=== PATIENT | female | born 1960 | race African-American/Black ===

== ENCOUNTER 2016-06-10 07:21 | Outpatient (CLI) | payer OTHER ==
[2016-06-10 09:24] LABS: #Basophils 0.1 thou/uL (0.0-0.2); #Eosinphils 0.2 thou/uL (0.0-0.7); #Lymphocytes 2.1 thou/uL (1.20-3.40); #Monocytes 0.7 thou/uL (0.11-0.59); #Neutrophils 3.1 thou/uL (1.40-6.50); %Basophils 0.9 % (0.0-1.0); %Eosinophils 3.7 % (0.0-10.0); %Lymphocytes 33.9 % (21.0-51.0); %Monocytes 10.7 % (0.0-10.0); Hematocrit 35.8 % (36.0-47.0); Mean Platelet Volume 7.1 fL (7.4-10.4); Red Blood Cell (RBC) Count 3.85 mill/uL (4.20-5.40); White Blood Cell (WBC) Count 6.1 thou/uL (4.8-10.8)
[2016-06-10 09:31] LABS: ALT (SGPT) 12 U/L (0-55); AST (SGOT) 12 U/L (5-34); Alkaline Phosphatase 80 U/L (40-150); Anion Gap 14 mmol/L (10-20); BUN (Urea Nitrogen) 38 mg/dL (9.8-20.1); Bilirubin, Total 0.2 mg/dL (0.2-1.2); Calc. Creatinine Clearance 0 mL/min (70-130); Calcium 9.1 mg/dL (7.8-10.44); Carbon Dioxide 19 mmol/L (22-29); Chloride 109 mmol/L (98-107); Estimated GFR-MDRD 85; Protein, Total 7.5 g/dL (6.0-8.3)
== END 2016-06-10 07:22 | disposition home or self-care (01) ==
LOC: NAV LABSP 07:21
PROVIDERS: ATTEND Internal Medicine
DX: E11.9 Type 2 diabetes mellitus without complications (principal); E78.5 Hyperlipidemia, unspecified
CPT/HCPCS: 36415; 80053; 85025

== ENCOUNTER 2016-06-16 23:00 | Outpatient (CLI) | payer MEDICARE, OTHER ==
[2016-06-16 23:29] LABS: Bilirubin Negative (Negative); Blood, Urine Small (Negative); Glucose, Urine (Dipstick) 250 mg/dL (Negative); Ketone, Urine Negative (Negative); Nitrite Positive (Negative); Protein, Urine (Dipstick) Negative (Neg-Trace); Urobilinogen 0.2 mg/dL (0.2-1.0)
[2016-06-16 23:35] LABS: Bacteria/HPF 4+ HPF (None Seen); Squamous Epithelial 0-3 HPF (0-3)
== END 2016-06-16 23:01 | disposition home or self-care (01) ==
LOC: NAV LAB 23:00
PROVIDERS: ATTEND Internal Medicine
DX: L89.303 Pressure ulcer of unspecified buttock, stage 3 (principal); N39.0 Urinary tract infection, site not specified; Z89.519 Acquired absence of unspecified leg below knee
CPT/HCPCS: 81003; 81015; 87070; 87077; 87086; 87205

== ENCOUNTER 2016-06-17 07:10 | Outpatient (CLI) | payer MEDICARE, OTHER ==
[2016-06-17 08:36] LABS: #Eosinphils 0.2 thou/uL (0.0-0.7); #Lymphocytes 2.3 thou/uL (1.20-3.40); #Monocytes 0.7 thou/uL (0.11-0.59); #Neutrophils 3.1 thou/uL (1.40-6.50); %Basophils 0.8 % (0.0-1.0); %Eosinophils 3.8 % (0.0-10.0); %Lymphocytes 36.2 % (21.0-51.0); %Monocytes 11.3 % (0.0-10.0); Hematocrit 35.2 % (36.0-47.0); Mean Platelet Volume 7.6 fL (7.4-10.4); Red Blood Cell (RBC) Count 3.82 mill/uL (4.20-5.40); White Blood Cell (WBC) Count 6.4 thou/uL (4.8-10.8)
[2016-06-17 09:06] LABS: ALT (SGPT) 14 U/L (0-55); AST (SGOT) 11 U/L (5-34); Alkaline Phosphatase 86 U/L (40-150); Anion Gap 12 mmol/L (10-20); BUN (Urea Nitrogen) 37 mg/dL (9.8-20.1); Bilirubin, Total 0.4 mg/dL (0.2-1.2); Calc. Creatinine Clearance 0 mL/min (70-130); Calcium 9.4 mg/dL (7.8-10.44); Chloride 109 mmol/L (98-107); Estimated GFR-MDRD 81; Globulin 4.1 g/dL (2.4-3.5); Protein, Total 7.6 g/dL (6.0-8.3)
[2016-06-17 09:50] LABS: Carbon Dioxide 20 mmol/L (22-29)
== END 2016-06-17 07:11 | disposition home or self-care (01) ==
LOC: NAV LABSP 07:10
PROVIDERS: ATTEND Internal Medicine
DX: N39.0 Urinary tract infection, site not specified (principal); L89.303 Pressure ulcer of unspecified buttock, stage 3; Z89.519 Acquired absence of unspecified leg below knee
CPT/HCPCS: 80053; 85025; 85652; 86140

== ENCOUNTER 2016-06-24 09:06 | Outpatient (CLI) | payer MEDICARE, OTHER | END 2016-06-24 09:07 | disposition home or self-care (01) | LOC: NAV LABSP 09:06 | PROVIDERS: ATTEND Internal Medicine | DX: E11.65 Type 2 diabetes mellitus with hyperglycemia (principal) | CPT/HCPCS: 36415; 82565 ==

== ENCOUNTER 2016-07-15 22:36 | Outpatient (CLI) | payer MEDICARE ==
[2016-07-15 22:51] LABS: Bilirubin Negative (Negative); Blood, Urine Moderate (Negative); Glucose, Urine (Dipstick) Negative (Negative); Ketone, Urine Negative (Negative); Nitrite Negative (Negative); Protein, Urine (Dipstick) Negative (Neg-Trace); Urobilinogen 0.2 mg/dL (0.2-1.0)
[2016-07-15 22:56] LABS: Bacteria/HPF 1+ HPF (None Seen)
== END 2016-07-15 22:37 | disposition home or self-care (01) ==
LOC: NAV LAB 22:36
PROVIDERS: ATTEND Internal Medicine
DX: N39.0 Urinary tract infection, site not specified (principal); N31.9 Neuromuscular dysfunction of bladder, unspecified
CPT/HCPCS: 81003; 81015; 87077; 87086

== ENCOUNTER 2016-07-18 07:40 | Outpatient (CLI) | payer MEDICARE ==
[2016-07-18 08:10] LABS: #Eosinphils 0.3 thou/uL (0.0-0.7); #Lymphocytes 2.3 thou/uL (1.20-3.40); #Monocytes 0.8 thou/uL (0.11-0.59); #Neutrophils 3.3 thou/uL (1.40-6.50); %Basophils 0.7 % (0.0-1.0); %Eosinophils 4.3 % (0.0-10.0); %Lymphocytes 34.5 % (21.0-51.0); %Monocytes 11.8 % (0.0-10.0); Hematocrit 35.2 % (36.0-47.0); Mean Platelet Volume 7.9 fL (7.4-10.4); Red Blood Cell (RBC) Count 3.95 mill/uL (4.20-5.40); White Blood Cell (WBC) Count 6.8 thou/uL (4.8-10.8)
[2016-07-18 08:17] LABS: ALT (SGPT) 13 U/L (0-55); AST (SGOT) 10 U/L (5-34); Alkaline Phosphatase 100 U/L (40-150); Anion Gap 13 mmol/L (10-20); BUN (Urea Nitrogen) 46 mg/dL (9.8-20.1); Bilirubin, Total 0.3 mg/dL (0.2-1.2); Calc. Creatinine Clearance 0 mL/min (70-130); Calcium 9.7 mg/dL (7.8-10.44); Carbon Dioxide 18 mmol/L (22-29); Chloride 113 mmol/L (98-107); Estimated GFR-MDRD 78; Protein, Total 7.6 g/dL (6.0-8.3)
== END 2016-07-18 07:41 | disposition home or self-care (01) ==
LOC: NAV LABSP 07:40
PROVIDERS: ATTEND Internal Medicine
DX: E78.5 Hyperlipidemia, unspecified (principal); E11.9 Type 2 diabetes mellitus without complications
CPT/HCPCS: 36415; 80053; 85025

== ENCOUNTER 2016-08-03 07:44 | Outpatient (CLI) | payer MEDICARE ==
[2016-08-03 10:09] LABS: ALT (SGPT) 20 U/L (0-55); AST (SGOT) 20 U/L (5-34); Alkaline Phosphatase 108 U/L (40-150); Anion Gap 16 mmol/L (10-20); BUN (Urea Nitrogen) 33 mg/dL (9.8-20.1); Bilirubin, Total 0.2 mg/dL (0.2-1.2); Calc. Creatinine Clearance 0 mL/min (70-130); Calcium 9.2 mg/dL (7.8-10.44); Carbon Dioxide 24 mmol/L (22-29); Chloride 103 mmol/L (98-107); Estimated GFR-MDRD 81; Globulin 3.8 g/dL (2.4-3.5); Protein, Total 6.8 g/dL (6.0-8.3)
[2016-08-03 10:43] LABS: Hemoglobin A1c 10.1 % (4.0-6.0)
[2016-08-03 11:48] LABS: Anisocytosis SLIGHT = 6-15 cells (100X) (0-5/hpf); Hematocrit 29.1 % (36.0-47.0); Hypochromia SLIGHT = 6-15 cells (100X) (0-5/hpf); Mean Platelet Volume 7.4 fL (7.4-10.4); Neutrophil 58 % (42-75); White Blood Cell (WBC) Count 9.6 thou/uL (4.8-10.8)
== END 2016-08-03 07:45 | disposition home or self-care (01) ==
LOC: NAV LABSP 07:44
PROVIDERS: ATTEND Internal Medicine
DX: E78.5 Hyperlipidemia, unspecified (principal); E11.9 Type 2 diabetes mellitus without complications
CPT/HCPCS: 36415; 80053; 83036; 85025

== ENCOUNTER 2016-09-04 07:54 | Outpatient (CLI) | payer MEDICARE ==
[2016-09-04 09:45] LABS: Bilirubin Negative (Negative); Blood, Urine Trace (Negative); Glucose, Urine (Dipstick) Negative (Negative); Leukocyte Small (Negative); Nitrite Negative (Negative); Protein, Urine (Dipstick) 30 mg/dL (Neg-Trace); Urobilinogen 0.2 mg/dL (0.2-1.0)
[2016-09-04 09:46] LABS: Clarity Cloudy (Clear); pH, Urine Greater/Equal 9.0 (5.0-9.0)
[2016-09-04 09:51] LABS: RBC/HPF 0-3 HPF (0-3)
[2016-09-04 09:52] LABS: Bacteria/HPF 2+ HPF (None Seen); Crystals/HPF 1+ TRIPLE PHOS HPF (Negative)
== END 2016-09-04 07:55 | disposition home or self-care (01) ==
LOC: NAV LABSP 07:54
PROVIDERS: ATTEND Internal Medicine
DX: R19.6 Halitosis (principal)
CPT/HCPCS: 81001; 87077; 87086; 87186

== ENCOUNTER 2016-09-06 18:36 | Outpatient (CLI) | payer MEDICARE ==
[2016-09-06 19:04] LABS: Anion Gap 16 mmol/L (10-20); BUN (Urea Nitrogen) 34 mg/dL (9.8-20.1); Calc. Creatinine Clearance 0 mL/min (70-130); Calcium 9.3 mg/dL (7.8-10.44); Carbon Dioxide 17 mmol/L (22-29); Chloride 110 mmol/L (98-107); Estimated GFR-MDRD 81; Glucose 194 mg/dL (70-105); Potassium 3.8 mmol/L (3.5-5.1); Sodium 139 mmol/L (136-145)
== END 2016-09-06 18:37 | disposition home or self-care (01) ==
LOC: NAV LAB 18:36
PROVIDERS: ATTEND Internal Medicine
DX: N39.0 Urinary tract infection, site not specified (principal); N31.9 Neuromuscular dysfunction of bladder, unspecified
CPT/HCPCS: 36415; 80048

== ENCOUNTER 2016-09-09 06:46 | Outpatient (CLI) | payer MEDICARE, MEDICAID ==
[2016-09-09 07:06] LABS: #Basophils 0.1 thou/uL (0.0-0.2); #Eosinphils 0.3 thou/uL (0.0-0.7); #Lymphocytes 2.8 thou/uL (1.20-3.40); #Monocytes 0.6 thou/uL (0.11-0.59); #Neutrophils 3.1 thou/uL (1.40-6.50); %Basophils 0.8 % (0.0-1.0); %Eosinophils 3.8 % (0.0-10.0); %Lymphocytes 40.8 % (21.0-51.0); %Neutrophils 45.6 % (42.0-75.0); Hemoglobin 11.3 g/dL (12.0-16.0); Mean Corpuscular HGB CONC 30.1 g/dL (32.0-36.0); Mean Corpuscular Hemoglobin 26.5 pg (27.0-31.0); Mean Corpuscular Volume 87.9 fl (81.0-99.0); Mean Platelet Volume 7.6 fL (7.4-10.4); Platelet Count 315 thou/uL (130-400); Red Blood Cell (RBC) Count 4.28 mill/uL (4.20-5.40); White Blood Cell (WBC) Count 6.8 thou/uL (4.8-10.8)
[2016-09-09 07:16] LABS: Hemoglobin A1c 8.9 % (4.0-6.0)
[2016-09-09 07:17] LABS: ALT (SGPT) 16 U/L (0-55); AST (SGOT) 12 U/L (5-34); Albumin 3.7 g/dL (3.5-5.0); Alkaline Phosphatase 105 U/L (40-150); Anion Gap 14 mmol/L (10-20); BUN (Urea Nitrogen) 32 mg/dL (9.8-20.1); Bilirubin, Total 0.4 mg/dL (0.2-1.2); Calc. Creatinine Clearance 0 mL/min (70-130); Calcium 9.8 mg/dL (7.8-10.44); Carbon Dioxide 19 mmol/L (22-29); Chloride 114 mmol/L (98-107); Estimated GFR-MDRD Greater than 90; Glucose 107 mg/dL (70-105); Potassium 4.7 mmol/L (3.5-5.1); Protein, Total 7.7 g/dL (6.0-8.3); Sodium 142 mmol/L (136-145)
== END 2016-09-09 06:47 | disposition home or self-care (01) ==
LOC: NAV LABSP 06:46
PROVIDERS: ATTEND Internal Medicine
DX: N39.0 Urinary tract infection, site not specified (principal); N31.9 Neuromuscular dysfunction of bladder, unspecified; E11.65 Type 2 diabetes mellitus with hyperglycemia; I10 Essential (primary) hypertension
CPT/HCPCS: 36415; 80053; 83036; 85025

== ENCOUNTER 2016-09-12 07:15 | Outpatient (CLI) | payer MEDICARE ==
[2016-09-12 09:20] LABS: Anion Gap 14 mmol/L (10-20); BUN (Urea Nitrogen) 39 mg/dL (9.8-20.1); Calc. Creatinine Clearance 0 mL/min (70-130); Calcium 9.6 mg/dL (7.8-10.44); Carbon Dioxide 19 mmol/L (22-29); Chloride 113 mmol/L (98-107); Estimated GFR-MDRD 85; Glucose 166 mg/dL (70-105); Potassium 4.3 mmol/L (3.5-5.1); Sodium 142 mmol/L (136-145)
== END 2016-09-12 07:16 | disposition home or self-care (01) ==
LOC: NAV LABSP 07:15
PROVIDERS: ATTEND Internal Medicine
DX: N39.0 Urinary tract infection, site not specified (principal); N31.9 Neuromuscular dysfunction of bladder, unspecified; E78.5 Hyperlipidemia, unspecified; E11.9 Type 2 diabetes mellitus without complications
CPT/HCPCS: 36415; 80048

== ENCOUNTER 2016-09-22 10:52 | Outpatient (CLI) | payer MEDICARE ==
[2016-09-22 14:09] LABS: Bilirubin Negative (Negative); Blood, Urine Small (Negative); Glucose, Urine (Dipstick) Negative (Negative); Leukocyte Small (Negative); Nitrite Positive (Negative); Protein, Urine (Dipstick) Trace mg/dL (Neg-Trace); Urobilinogen 0.2 mg/dL (0.2-1.0)
[2016-09-22 21:59] LABS: RBC/HPF 0-3 HPF (0-3); Squamous Epithelial 0-3 HPF (0-3); WBC/HPF 0-3 HPF (0-3)
[2016-09-22 22:07] LABS: Bacteria/HPF Rare-Few HPF (None Seen)
[2016-09-22 22:08] LABS: Clarity Hazy (Clear); Crystals/HPF 1+ TRIPLE PHOS HPF (Negative)
== END 2016-09-22 10:53 | disposition home or self-care (01) ==
LOC: NAV LABSP 10:52
PROVIDERS: ATTEND Internal Medicine
DX: R82.90 Unspecified abnormal findings in urine (principal); R41.0 Disorientation, unspecified
CPT/HCPCS: 81003; 81015; 87077; 87086; 87186

== ENCOUNTER 2016-09-23 07:59 | Outpatient (CLI) | payer MEDICARE ==
[2016-09-23 12:03] LABS: #Eosinphils 0.2 thou/uL (0.0-0.7); #Lymphocytes 2.7 thou/uL (1.20-3.40); #Monocytes 0.9 thou/uL (0.11-0.59); #Neutrophils 4.4 thou/uL (1.40-6.50); %Basophils 0.5 % (0.0-1.0); %Eosinophils 2.2 % (0.0-10.0); %Lymphocytes 33.3 % (21.0-51.0); %Monocytes 10.4 % (0.0-10.0); %Neutrophils 53.7 % (42.0-75.0); ALT (SGPT) 17 U/L (0-55); AST (SGOT) 14 U/L (5-34); Albumin 3.6 g/dL (3.5-5.0); Alkaline Phosphatase 93 U/L (40-150); Anion Gap 14 mmol/L (10-20); BUN (Urea Nitrogen) 31 mg/dL (9.8-20.1); Bilirubin, Total 0.5 mg/dL (0.2-1.2); CRP (Inflammatory) 1.35 mg/dL (= or < 0.5); Calc. Creatinine Clearance 0 mL/min (70-130); Carbon Dioxide 22 mmol/L (22-29); Chloride 108 mmol/L (98-107); Estimated GFR-MDRD 88; Globulin 4.3 g/dL (2.4-3.5); Glucose 99 mg/dL (70-105); Hemoglobin 11.8 g/dL (12.0-16.0); Mean Corpuscular HGB CONC 30.3 g/dL (32.0-36.0); Mean Corpuscular Hemoglobin 26.6 pg (27.0-31.0); Mean Platelet Volume 7.8 fL (7.4-10.4); Platelet Count 275 thou/uL (130-400); Potassium 4.5 mmol/L (3.5-5.1); Protein, Total 7.9 g/dL (6.0-8.3); RBC Distribution Width 17.1 % (11.5-14.5); Red Blood Cell (RBC) Count 4.44 mill/uL (4.20-5.40); Sodium 139 mmol/L (136-145); White Blood Cell (WBC) Count 8.2 thou/uL (4.8-10.8)
== END 2016-09-23 08:00 | disposition home or self-care (01) ==
LOC: NAV LABSP 07:59
PROVIDERS: ATTEND Internal Medicine
DX: L29.9 Pruritus, unspecified (principal); I63.9 Cerebral infarction, unspecified; I10 Essential (primary) hypertension; E11.9 Type 2 diabetes mellitus without complications
CPT/HCPCS: 36415; 80053; 85025; 85652; 86140

== ENCOUNTER 2016-10-11 07:09 | Outpatient (CLI) | payer MEDICARE ==
[2016-10-11 08:31] LABS: ALT (SGPT) 12 U/L (8-55); AST (SGOT) 14 U/L (5-34); Albumin 3.6 g/dL (3.5-5.0); Alkaline Phosphatase 83 U/L (40-150); Anion Gap 13 mmol/L (10-20); BUN (Urea Nitrogen) 30 mg/dL (9.8-20.1); Bilirubin, Total 0.4 mg/dL (0.2-1.2); Calc. Creatinine Clearance 0 mL/min (70-130); Calcium 9.7 mg/dL (7.8-10.44); Carbon Dioxide 20 mmol/L (22-29); Chloride 111 mmol/L (98-107); Estimated GFR-MDRD Greater than 90; Globulin 3.6 g/dL (2.4-3.5); Glucose 167 mg/dL (70-105); Potassium 4.6 mmol/L (3.5-5.1); Protein, Total 7.2 g/dL (6.0-8.3); Sodium 139 mmol/L (136-145)
[2016-10-11 08:37] LABS: #Eosinphils 0.2 thou/uL (0.0-0.7); #Lymphocytes 2.5 thou/uL (1.20-3.40); #Monocytes 0.7 thou/uL (0.11-0.59); #Neutrophils 3.7 thou/uL (1.40-6.50); %Basophils 0.7 % (0.0-1.0); %Eosinophils 2.6 % (0.0-10.0); %Lymphocytes 34.6 % (21.0-51.0); %Monocytes 10.2 % (0.0-10.0); %Neutrophils 51.9 % (42.0-75.0); Hemoglobin 10.6 g/dL (12.0-16.0); Mean Corpuscular HGB CONC 29.8 g/dL (32.0-36.0); Mean Corpuscular Hemoglobin 26.5 pg (27.0-31.0); Mean Corpuscular Volume 88.9 fl (81.0-99.0); Platelet Count 296 thou/uL (130-400); RBC Distribution Width 17.6 % (11.5-14.5); Red Blood Cell (RBC) Count 4.01 mill/uL (4.20-5.40); White Blood Cell (WBC) Count 7.2 thou/uL (4.8-10.8)
== END 2016-10-11 07:10 | disposition home or self-care (01) ==
LOC: NAV LABSP 07:09
PROVIDERS: ATTEND Internal Medicine
DX: E78.5 Hyperlipidemia, unspecified (principal); E11.9 Type 2 diabetes mellitus without complications
CPT/HCPCS: 36415; 80053; 85025

== ENCOUNTER 2016-10-28 08:27 | Outpatient (CLI) | payer MEDICARE ==
[2016-10-28 10:34] LABS: ALT (SGPT) 13 U/L (8-55); AST (SGOT) 11 U/L (5-34); Albumin 3.6 g/dL (3.5-5.0); Alkaline Phosphatase 94 U/L (40-150); Anion Gap 15 mmol/L (10-20); BUN (Urea Nitrogen) 28 mg/dL (9.8-20.1); Bilirubin, Total 0.3 mg/dL (0.2-1.2); Calc. Creatinine Clearance 0 mL/min (70-130); Calcium 9.3 mg/dL (7.8-10.44); Carbon Dioxide 20 mmol/L (22-29); Cardiac Risk 3.9 (Less than 4.5); Chloride 107 mmol/L (98-107); Cholesterol 104 mg/dl (< 200 Desired); Estimated GFR-MDRD 89; Globulin 3.8 g/dL (2.4-3.5); HDL Cholesterol 27 mg/dL (>60 Neg Risk); LDL Cholesterol, Calculated 47 mg/dL; Potassium 4.5 mmol/L (3.5-5.1); Protein, Total 7.4 g/dL (6.0-8.3); Sodium 137 mmol/L (136-145); Triglycerides 151 mg/dL (Less than 150)
[2016-10-28 14:41] LABS: Eosinophils 1 % (0-10); Lymphocytes 37 % (21-51); MDiff Complete? YES; Mean Corpuscular HGB CONC 30.2 g/dL (32.0-36.0); Mean Corpuscular Hemoglobin 26.9 pg (27.0-31.0); Mean Platelet Volume 7.6 fL (7.4-10.4); Monocytes 14 % (0-10); Neutrophil 48 % (42-75); PLT Morphology Comment Appears Adequate; Platelet Count 286 thou/uL (130-400); RBC Distribution Width 17.4 % (11.5-14.5); Red Blood Cell (RBC) Count 4.11 mill/uL (4.20-5.40); White Blood Cell (WBC) Count 5.7 thou/uL (4.8-10.8)
[2016-10-28 19:42] LABS: Critical Call Chemistry NOT CRITICAL; Glucose 220 mg/dL (70-105)
== END 2016-10-28 08:28 | disposition home or self-care (01) ==
LOC: NAV LABSP 08:27
PROVIDERS: ATTEND Internal Medicine
DX: E78.5 Hyperlipidemia, unspecified (principal); E11.65 Type 2 diabetes mellitus with hyperglycemia; I10 Essential (primary) hypertension; I25.9 Chronic ischemic heart disease, unspecified; I67.89 Other cerebrovascular disease
CPT/HCPCS: 36415; 80053; 80061; 85025

== ENCOUNTER 2016-11-08 08:59 | Outpatient (CLI) | payer MEDICARE ==
[2016-11-08 12:25] LABS: Hemoglobin A1c 8.2 % (4.0-6.0)
== END 2016-11-08 09:00 | disposition home or self-care (01) ==
LOC: NAV LABSP 08:59
PROVIDERS: ATTEND Internal Medicine
DX: E78.5 Hyperlipidemia, unspecified (principal); E11.9 Type 2 diabetes mellitus without complications
CPT/HCPCS: 36415; 83036

== ENCOUNTER 2016-12-06 11:56 | Outpatient (CLI) | payer MEDICARE ==
[2016-12-06 12:54] LABS: #Eosinphils 0.2 thou/uL (0.0-0.7); #Lymphocytes 2.5 thou/uL (1.20-3.40); #Monocytes 0.6 thou/uL (0.11-0.59); #Neutrophils 3.4 thou/uL (1.40-6.50); %Basophils 0.6 % (0.0-1.0); %Eosinophils 3.6 % (0.0-10.0); %Lymphocytes 37.2 % (21.0-51.0); %Monocytes 8.4 % (0.0-10.0); %Neutrophils 50.2 % (42.0-75.0); Hemoglobin 11.1 g/dL (12.0-16.0); Mean Corpuscular HGB CONC 29.9 g/dL (32.0-36.0); Mean Corpuscular Hemoglobin 27.5 pg (27.0-31.0); Mean Corpuscular Volume 92.1 fl (81.0-99.0); Mean Platelet Volume 7.4 fL (7.4-10.4); Platelet Count 262 thou/uL (130-400); Red Blood Cell (RBC) Count 4.03 mill/uL (4.20-5.40); White Blood Cell (WBC) Count 6.7 thou/uL (4.8-10.8)
[2016-12-06 12:58] LABS: ALT (SGPT) 13 U/L (8-55); AST (SGOT) 15 U/L (5-34); Albumin 3.6 g/dL (3.5-5.0); Alkaline Phosphatase 81 U/L (40-150); Anion Gap 15 mmol/L (10-20); BUN (Urea Nitrogen) 35 mg/dL (9.8-20.1); Bilirubin, Total 0.2 mg/dL (0.2-1.2); Calc. Creatinine Clearance 0 mL/min (70-130); Calcium 9.6 mg/dL (7.8-10.44); Carbon Dioxide 18 mmol/L (22-29); Chloride 113 mmol/L (98-107); Estimated GFR-MDRD 87; Globulin 3.7 g/dL (2.4-3.5); Glucose 237 mg/dL (70-105); Potassium 4.5 mmol/L (3.5-5.1); Protein, Total 7.3 g/dL (6.0-8.3); Sodium 141 mmol/L (136-145)
[2016-12-06 15:52] LABS: Hemoglobin A1c 9.6 % (4.0-6.0)
== END 2016-12-06 11:57 | disposition home or self-care (01) ==
LOC: NAV LABSP 11:56
PROVIDERS: ATTEND Internal Medicine
DX: E78.5 Hyperlipidemia, unspecified (principal); E11.59 Type 2 diabetes mellitus with other circulatory complications; I10 Essential (primary) hypertension; N39.0 Urinary tract infection, site not specified
CPT/HCPCS: 36415; 80053; 83036; 85025

== ENCOUNTER 2016-12-30 07:08 | Outpatient (CLI) | payer MEDICARE, OTHER ==
[2016-12-30 08:41] LABS: #Eosinphils 0.3 thou/uL (0.0-0.7); #Lymphocytes 2.2 thou/uL (1.20-3.40); #Monocytes 0.6 thou/uL (0.11-0.59); #Neutrophils 2.6 thou/uL (1.40-6.50); %Basophils 0.6 % (0.0-1.0); %Eosinophils 4.5 % (0.0-10.0); %Lymphocytes 38.6 % (21.0-51.0); %Monocytes 11.1 % (0.0-10.0); %Neutrophils 45.3 % (42.0-75.0); Hemoglobin 11.4 g/dL (12.0-16.0); Mean Corpuscular HGB CONC 29.9 g/dL (32.0-36.0); Mean Corpuscular Hemoglobin 27.4 pg (27.0-31.0); Mean Corpuscular Volume 91.8 fl (81.0-99.0); Mean Platelet Volume 7.3 fL (7.4-10.4); Platelet Count 269 thou/uL (130-400); RBC Distribution Width 15.7 % (11.5-14.5); Red Blood Cell (RBC) Count 4.16 mill/uL (4.20-5.40); White Blood Cell (WBC) Count 5.6 thou/uL (4.8-10.8)
[2016-12-30 08:55] LABS: ALT (SGPT) 15 U/L (8-55); AST (SGOT) 14 U/L (5-34); Albumin 3.5 g/dL (3.5-5.0); Alkaline Phosphatase 88 U/L (40-150); Anion Gap 15 mmol/L (10-20); BUN (Urea Nitrogen) 32 mg/dL (9.8-20.1); Bilirubin, Total 0.2 mg/dL (0.2-1.2); Calc. Creatinine Clearance 0 mL/min (70-130); Calcium 9.5 mg/dL (7.8-10.44); Carbon Dioxide 17 mmol/L (22-29); Chloride 112 mmol/L (98-107); Estimated GFR-MDRD 81; Globulin 3.8 g/dL (2.4-3.5); Glucose 320 mg/dL (70-105); Potassium 4.7 mmol/L (3.5-5.1); Protein, Total 7.3 g/dL (6.0-8.3); Sodium 139 mmol/L (136-145)
== END 2016-12-30 07:09 | disposition home or self-care (01) ==
LOC: NAV LABSP 07:08
PROVIDERS: ATTEND Internal Medicine
DX: E11.9 Type 2 diabetes mellitus without complications (principal); E78.5 Hyperlipidemia, unspecified
CPT/HCPCS: 36415; 80053; 85025

== ENCOUNTER 2017-02-03 09:38 | Outpatient (CLI) | payer MEDICARE, OTHER ==
[2017-02-03 09:45] LABS: #Eosinphils 0.3 thou/uL (0.0-0.7); #Lymphocytes 2.1 thou/uL (1.20-3.40); #Monocytes 0.7 thou/uL (0.11-0.59); #Neutrophils 2.8 thou/uL (1.40-6.50); %Basophils 0.8 % (0.0-1.0); %Eosinophils 4.2 % (0.0-10.0); %Lymphocytes 35.5 % (21.0-51.0); %Monocytes 11.7 % (0.0-10.0); %Neutrophils 47.7 % (42.0-75.0); Hemoglobin 10.9 g/dL (12.0-16.0); Mean Corpuscular Hemoglobin 27.7 pg (27.0-31.0); Mean Corpuscular Volume 92.4 fl (81.0-99.0); Mean Platelet Volume 7.9 fL (7.4-10.4); Platelet Count 264 thou/uL (130-400); Red Blood Cell (RBC) Count 3.92 mill/uL (4.20-5.40)
[2017-02-03 09:59] LABS: ALT (SGPT) 25 U/L (8-55); AST (SGOT) 22 U/L (5-34); Albumin 3.4 g/dL (3.5-5.0); Alkaline Phosphatase 79 U/L (40-150); Anion Gap 13 mmol/L (10-20); BUN (Urea Nitrogen) 34 mg/dL (9.8-20.1); Bilirubin, Total 0.3 mg/dL (0.2-1.2); Calc. Creatinine Clearance 0 mL/min (70-130); Calcium 9.1 mg/dL (7.8-10.44); Carbon Dioxide 18 mmol/L (22-29); Chloride 112 mmol/L (98-107); Estimated GFR-MDRD 84; Globulin 3.9 g/dL (2.4-3.5); Glucose 288 mg/dL (70-105); Protein, Total 7.3 g/dL (6.0-8.3); Sodium 139 mmol/L (136-145)
[2017-02-03 10:25] LABS: Hemoglobin A1c 11.6 % (4.0-6.0)
== END 2017-02-03 09:39 | disposition home or self-care (01) ==
LOC: NAV LABSP 09:38
PROVIDERS: ATTEND Internal Medicine
DX: E11.9 Type 2 diabetes mellitus without complications (principal); E78.5 Hyperlipidemia, unspecified
CPT/HCPCS: 36415; 80053; 83036; 85025

== ENCOUNTER 2017-03-23 16:40 | Outpatient (CLI) | payer MEDICARE, MEDICAID ==
[2017-03-23 17:14] LABS: Anion Gap 13 mmol/L (10-20); BUN (Urea Nitrogen) 40 mg/dL (9.8-20.1); Calc. Creatinine Clearance 0 mL/min (70-130); Calcium 9.8 mg/dL (7.8-10.44); Carbon Dioxide 17 mmol/L (22-29); Chloride 109 mmol/L (98-107); Estimated GFR-MDRD 67; Glucose 385 mg/dL (70-105); Potassium 3.8 mmol/L (3.5-5.1); Sodium 135 mmol/L (136-145)
== END 2017-03-23 16:41 | disposition home or self-care (01) ==
LOC: NAV LABSP 16:40
PROVIDERS: ATTEND Internal Medicine
DX: N39.0 Urinary tract infection, site not specified (principal); E11.65 Type 2 diabetes mellitus with hyperglycemia
CPT/HCPCS: 80048

== ENCOUNTER 2017-08-11 10:29 | Outpatient (CLI) | payer MEDICARE, OTHER ==
[2017-08-11 11:10] LABS: Vancomycin, Trough 1.5 ug/mL
== END 2017-08-11 10:30 | disposition home or self-care (01) ==
LOC: NAV LABSP 10:29
PROVIDERS: ATTEND Internal Medicine
DX: N39.0 Urinary tract infection, site not specified (principal); A41.9 Sepsis, unspecified organism
CPT/HCPCS: 36415; 80202

== ENCOUNTER 2018-06-07 17:53 | Outpatient (CLI) | payer MEDICARE, OTHER ==
[2018-06-08 13:08] LABS: Bilirubin Negative (Negative); Blood, Urine Negative (Negative); Clarity CLEAR (Clear); Glucose, Urine (Dipstick) Negative (Negative); Leukocyte Small (Negative); Nitrite Negative (Negative); Protein, Urine (Dipstick) Trace mg/dL (Neg-Trace); Specific Gravity, Urine 1.011 (1.002-1.036); Urobilinogen 0.2 mg/dL (0.2-1.0)
[2018-06-08 13:14] LABS: Bacteria/HPF 2+ HPF (None Seen); Hyaline Casts/LPF 4-6 HYALINE CAST LPF (0-3 Hyaline)
== END 2018-06-07 17:54 | disposition home or self-care (01) ==
LOC: NAV LAB 17:53
PROVIDERS: ATTEND Internal Medicine
DX: A41.9 Sepsis, unspecified organism (principal); N39.0 Urinary tract infection, site not specified
CPT/HCPCS: 81001; 87077; 87086; 87186

== ENCOUNTER 2019-02-22 13:51 | Emergency (ER) | payer MEDICARE, OTHER ==
[2019-02-22 14:16] LABS: Bilirubin Negative (Negative); Blood, Urine Negative (Negative); Glucose, Urine (Dipstick) Negative (Negative); Leukocyte Moderate (Negative); Nitrite Negative (Negative); Protein, Urine (Dipstick) 100 mg/dL (Neg-Trace); Urobilinogen 0.2 mg/dL (Less than 2)
[2019-02-22 14:18] LABS: Clarity Cloudy (Clear)
[2019-02-22 14:24] LABS: Bacteria/HPF 4+ HPF (None Seen); RBC/HPF 0-3 HPF (0-3); Squamous Epithelial 0-3 HPF (0-3); Triple Phosphate Crystal 3+ HPF (None Seen)
[2019-02-22 14:44] LABS: #Eosinphils 0.1 thou/uL (0.0-0.7); #Lymphocytes 2.5 thou/uL (1.20-3.40); #Monocytes 0.5 thou/uL (0.11-0.59); #Neutrophils 2.8 thou/uL (1.40-6.50); %Basophils 0.6 % (0.0-1.0); %Eosinophils 2.1 % (0.0-10.0); %Lymphocytes 42.1 % (21.0-51.0); %Monocytes 8.7 % (0.0-10.0); %Neutrophils 46.6 % (42.0-75.0); Hemoglobin 11.6 g/dL (12.0-16.0); Mean Corpuscular HGB CONC 29.5 g/dL (32.0-36.0); Mean Corpuscular Hemoglobin 27.7 pg (27.0-31.0); Mean Platelet Volume 7.8 fL (7.4-10.4); Platelet Count 262 thou/uL (130-400); RBC Distribution Width 14.4 % (11.5-14.5); Red Blood Cell (RBC) Count 4.18 mill/uL (4.20-5.40)
[2019-02-22 14:51] LABS: ALT (SGPT) 18 U/L (8-55); AST (SGOT) 20 U/L (5-34); Albumin 3.6 g/dL (3.5-5.0); Alkaline Phosphatase 70 U/L (40-110); Anion Gap 15 mmol/L (10-20); BUN (Urea Nitrogen) 22 mg/dL (9.8-20.1); Bilirubin, Total 0.3 mg/dL (0.2-1.2); Calc. Creatinine Clearance 0 mL/min (70-130); Carbon Dioxide 18 mmol/L (22-29); Chloride 116 mmol/L (98-107); Estimated GFR-MDRD 80; Globulin 3.4 g/dL (2.4-3.5); Glucose 81 mg/dL (70-105); Potassium 3.6 mmol/L (3.5-5.1); Sodium 145 mmol/L (136-145)
== END 2019-02-22 16:11 ==
LOC: NAV ERS 13:51
DX: F20.89 Other schizophrenia (principal); E78.5 Hyperlipidemia, unspecified; E78.00 Pure hypercholesterolemia, unspecified; I10 Essential (primary) hypertension; K21.9 Gastro-esophageal reflux disease without esophagitis; F20.9 Schizophrenia, unspecified; F32.9 Major depressive disorder, single episode, unspecified; Z79.899 Other long term (current) drug therapy; Z95.5 Presence of coronary angioplasty implant and graft; Z86.73 Personal history of transient ischemic attack (TIA), and cerebral infarction without residual deficits; Z79.01 Long term (current) use of anticoagulants
CPT/HCPCS: 80053; 81003; 81015; 85025; 87086; 93005

== ENCOUNTER 2019-03-20 22:45 | Emergency (ER) | payer MEDICARE, OTHER ==
[2019-03-20 23:02] LABS: Bilirubin Negative (Negative); Blood, Urine Trace (Negative); Clarity Clear (Clear); Glucose, Urine (Dipstick) Negative (Negative); Leukocyte Small (Negative); Nitrite Negative (Negative); Protein, Urine (Dipstick) 100 mg/dL (Neg-Trace); Urobilinogen 0.2 mg/dL (Less than 2)
[2019-03-20 23:19] LABS: #Basophils 0.1 thou/uL (0.0-0.2); #Eosinphils 0.2 thou/uL (0.0-0.7); #Lymphocytes 2.9 thou/uL (1.20-3.40); #Monocytes 0.7 thou/uL (0.11-0.59); #Neutrophils 2.8 thou/uL (1.40-6.50); %Basophils 1.3 % (0.0-1.0); %Lymphocytes 43.4 % (21.0-51.0); %Monocytes 10.2 % (0.0-10.0); %Neutrophils 42.2 % (42.0-75.0); Hemoglobin 13.4 g/dL (12.0-16.0); Mean Corpuscular HGB CONC 30.3 g/dL (32.0-36.0); Mean Corpuscular Hemoglobin 28.9 pg (27.0-31.0); Mean Corpuscular Volume 95.2 fL (78.0-98.0); Mean Platelet Volume 9.6 fL (7.4-10.4); Platelet Count 276 thou/uL (130-400); RBC Distribution Width 14.7 % (11.5-14.5); Red Blood Cell (RBC) Count 4.64 mill/uL (4.20-5.40); White Blood Cell (WBC) Count 6.7 thou/uL (4.8-10.8)
[2019-03-20 23:20] LABS: Bacteria/HPF 4+ HPF (None Seen); RBC/HPF 0-3 HPF (0-3); Squamous Epithelial None Seen HPF (0-3); WBC/HPF 0-3 HPF (0-3)
[2019-03-20 23:21] LABS: Triple Phosphate Crystal 2+ HPF (None Seen)
[2019-03-20 23:35] LABS: ALT (SGPT) 21 U/L (8-55); AST (SGOT) 19 U/L (5-34); Albumin 3.9 g/dL (3.5-5.0); Alkaline Phosphatase 78 U/L (40-110); Anion Gap 15 mmol/L (10-20); BUN (Urea Nitrogen) 47 mg/dL (9.8-20.1); Bilirubin, Total 0.4 mg/dL (0.2-1.2); Calc. Creatinine Clearance 0 mL/min (70-130); Calcium 10.4 mg/dL (7.8-10.44); Carbon Dioxide 22 mmol/L (22-29); Chloride 110 mmol/L (98-107); Estimated GFR-MDRD 78; Globulin 3.7 g/dL (2.4-3.5); Glucose 142 mg/dL (70-105); Lipase 35 U/L (8-78); Potassium 4.1 mmol/L (3.5-5.1); Protein, Total 7.6 g/dL (6.0-8.3); Sodium 143 mmol/L (136-145)
--- NOTE | 2019-03-21 00:17 | RAD ---
EXAM: CHEST ONE VIEW HISTORY: Altered mental status COMPARISON: 02/09/2010 FINDINGS: Cardiac silhouette and bronchovascular markings are accentuated due to shallow depth inspiration and portable technique of the exam. There is suboptimal evaluation of the left lung base due to underpenetrated technique of the study and depth of inspiration. There is mild elevation of the right hemidiaphragm with mild volume loss at the right lung base. The lungs are otherwise clear. IMPRESSION: 1. Limited examination due to shallow depth inspiration. There is suboptimal evaluation of the left l wendy base. 2. Mild elevation right hemidiaphragm.
== END 2019-03-21 00:58 ==
LOC: NAV ERS 22:45
DX: R53.83 Other fatigue (principal); L98.429 Non-pressure chronic ulcer of back with unspecified severity; F32.9 Major depressive disorder, single episode, unspecified; F20.9 Schizophrenia, unspecified; E78.5 Hyperlipidemia, unspecified; E78.00 Pure hypercholesterolemia, unspecified; E11.9 Type 2 diabetes mellitus without complications; K21.9 Gastro-esophageal reflux disease without esophagitis; I10 Essential (primary) hypertension; Z89.611 Acquired absence of right leg above knee; Z89.612 Acquired absence of left leg above knee; Z86.73 Personal history of transient ischemic attack (TIA), and cerebral infarction without residual deficits; Z79.899 Other long term (current) drug therapy
CPT/HCPCS: 71045; 80053; 81003; 81015; 83605; 83690; 84484; 85025; 87040; 87077; 87086; 93005; 94760